=== PATIENT | male | born 1975 ===

== ENCOUNTER 2017-05-05 15:31 | Emergency (ER) | payer MEDICAID ==
[2017-05-05 15:51] VITALS: BP 145/80; PULSE 86; RESP 18; TEMP 98.8; O2SAT 100
--- NOTE | 2017-05-05 17:00 | ED PDOC ---
HPI: Psych/Substance Abuse Time Seen by Provider: 05/05/17 16:03 Chief Complaint (Nursing): Psychiatric Evaluation Chief Complaint (Provider): Psychiatric Evaluation History Per: Patient Additional Complaint(s): 42 y/o male with history of cocaine, heroin and alcohol addiction presents to the ED complaining of suicide. Patient states that he was kicked out of his family residence. He also states that he got multiple abrasions on his face, arms and legs while running away from the police when he was caught doing the "exchange". Police was called for suspected criminal activity but there was no indication of crime so patient was cleared by crisis (Dr. Mendoza). Denies suicidal and homicidal ideation and hallucinations. Past Medical History Reviewed: Historical Data, Nursing Documentation, Vital Signs Vital Signs: Last Vital Signs Temp 98.8 F 05/05/17 15:46 Pulse 86 05/05/17 15:46 Resp 18 05/05/17 15:46 BP 145/80 05/05/17 15:46 Pulse Ox 100 05/05/17 15:46 - Medical History PMH: Bipolar Disorder (?) Denies: Diabetes, Hepatitis, HIV, HTN, Seizures, Sexually Transmitted Disease - Family History Family History: States: Unknown Family Hx - Social History Current smoker - smoking cessation education provided: Yes (Heavy smoker > 10cigarettes daily) Alcohol: > 2 Drinks/Day Drugs: Cocaine, Other (Heroin) - Immunization History Hx Tetanus Toxoid Vaccination: Yes Hx Influenza Vaccination: No Hx Pneumococcal Vaccination: No - Home Medications Home Medications: Ambulatory Orders Medication Instructions Recorded No Known Home Med 02/19/17 - Allergies Allergies/Adverse Reactions: Allergies Allergy/AdvReac Type Severity Reaction Status Date / Time No Known Allergies Allergy Verified 02/19/17 18:19 Review of Systems ROS Statement: Except As Marked, All Systems Reviewed And Found Negative (As per HPI, otherwise negative) Psych: Negative for: Suicidal ideation (Homicial Ideation), Other ( Hallucinations) Physical Exam - Reviewed Nursing Documentation Reviewed: Yes Vital Signs Reviewed: Yes - Physical Exam Appears: Positive for: Non-toxic, No Acute Distress Head Exam: Positive for: ATRAUMATIC, NORMAL INSPECTION, NORMOCEPHALIC Skin: Positive for: Normal Color, Warm, Dry, Rash (Abrasions on face, arms and legs) Respiratory: Negative for: Accessory Muscle Use, Respiratory Distress Neurologic/Psych: Positive for: Gait (stable) - ECG O2 Sat by Pulse Oximetry: 100 Medical Decision Making Medical Decision Making: Time: 16:08 Initial Plan: Glucose, Blood, POC Time: 16:50 Police is no longer involved in this case and the patient is medically stable to be discharged. Scribe Attestation: Documented by Bradley Vitale, acting as a scribe for Yuly Stuart PA-C Provider Scribe Attestation: All medical record entries made by the Scribe were at my direction and personally dictated by me. I have reviewed the chart and agree that the record accurately reflects my personal performance of the history, physical exam, medical decision making, and the department course for this patient. I have also personally directed, reviewed, and agree with the discharge instructions and disposition. Disposition - Clinical Impression Clinical Impression: Opioid dependence - Disposition Disposition: Routine/Home Disposition Time: 16:50 Condition: STABLE Instructions: Polysubstance Abuse (ED) Forms: [employer] ([place])
== END 2017-05-05 16:59 | disposition home or self-care (01) ==
LOC: H.ER 15:31
DX: F11.20 Opioid dependence, uncomplicated (principal); F31.9 Bipolar disorder, unspecified